=== PATIENT | female | born 1970 | race Caucasian/White ===

== ENCOUNTER 2017-05-30 05:35 | Observation (INO) | payer MEDICAID ==
[~2017-05-30] VITALS: Ht 167.6 cm; Wt 103.9 kg
[2017-05-30] VITALS (7 sets, daily range): BP systolic 108–117; BP diastolic 64–78
[~2017-05-30 05:35] MED LIST: ALBUTEROL2 PUFFS/17 IN; ALPRAZOLAM1 MG PO; ASPIRIN 81MG TA81 MG PO; ASPIRIN EC500 MG PO; AUGMENTIN 875 M1 TAB PO; BACLOFEN10 MG PO; CARVEDILOL3.125 MG PO; CELEXA10 MG PO; CHEWABLE ASPIRI81 MG PO; DULOXETINE 30MG30 MG PO; GABAPENTIN 600600 MG PO; HYDROCHLOROTHIA25 M1 PO; IMDUR 60MG. TAB60 MG PO; K-DUR 20MEQ TA20 MEQ PO; KLONOPIN1 M2 PO; LASIX 20MG. TAB20 MG PO; LIPITOR10 MG PO; LISINOPRIL 5MG T5 MG PO; MEDROL 4MG. DOSE4 MG PO; NAPROSYN 500MG500 MG PO; NITROSTAT0.4 MG SL; NOMEDS *; PAXIL20 MG PO; PLAVIX 75MG TAB75 MG PO; PLAVIX75 MG PO; PROZAC 20MG CAP20 MG PO; SEROQUEL50 MG PO; SOMA350 MG PO; SPIRONOLACTONE25 MG NG; SYNTHROID0.025 MG PO; TRAMADOL50 M1 PO; VALIUM 5MG TABLE5 MG PO; XANAX 0.5MG TA0.5 MG PO; [UNRECOGNIZED DRUG - CODE] PO
--- OUTSIDE RECORDS SUMMARY | 2017-05-30 05:52 | External Medical Summary Rpt ---
Author Author , CASANDRA GUAJARDO Address Unknown Phone [email or web address] Purpose Continuity of Care Document - 03-21-2017 through 2016 Results Labs Lab Lab Date Result Refere Interp Status Commen Order Detail nces retati t Range on Drugs identified in Urine by Screen method (03-21-2017 10:25) Ampheta NEGATIV <1000 complet mine 017 E ed [Presen 10:25 ce] in Urine by Screen method 11- NEGATIV <50 complet oxy 017 E ed delta-9 10:25 tetrahy drocann abinol [Presen ce] in Unspeci fied specime n
--- OUTSIDE RECORDS SUMMARY | 2017-05-30 05:52 | External Medical Summary Rpt ---
Author Author , CASANDRA GUAJARDO Address Unknown Phone [email or web address] Purpose Continuity of Care Document - 03-21-2017 [...]
--- OUTSIDE RECORDS SUMMARY | 2017-05-30 05:53 | External Medical Summary Rpt ---
Author Author , CASANDRA GUAJARDO Address Unknown Phone [email or web address] Immunization Name Date Rout CVX Reac Dose Comm Prov Is Faci e tion ent ider Refu lity Give sed n Infl 09-0 Intr 140 0.5 Hist KHAF No RITE uenz 8-20 amus mL oric SERA AID0 a, 16 cula al AYMA 3938 P-Fr r Info N ee rmat ion - Sour ce Unsp ecif ied
--- OUTSIDE RECORDS SUMMARY | 2017-05-30 05:53 | External Medical Summary Rpt ---
Author Author CASANDRA Rodriguez, EVANANTONIA [employer] Address Unknown Phone Unavailable Results Basic metabolic panel in Blood Observa Value Referen Units Interpr Notes Date tion ce etation Range Urea 7 - 18 mg/dL Normal No May 09 nitrogen informati 2016 7:10 [Mass/vol on in AM ume] in source Serum or data Plasma Calcium 8.5 - mg/dL Normal No May 09 [Mass/vol 10.1 informati 2016 7:10 ume] in on in AM Serum or source Plasma data Chloride 98 - 107 mmoL/L Normal No May 09 [Moles/vo informati 2016 7:10 lume] in on in AM Serum or source Plasma data Carbon 21.0 - mmoL/L Normal No May 09 dioxide, 32.0 informati 2016 7:10 total on in AM [Moles/vo source lume] in data Serum or Plasma Creatinin 0.55 - mg/dL Normal No May 09 e 1.02 informati 2016 7:10 [Mass/vol on in AM ume] in source Serum or data Plasma Estimated 59- ML/MIN No REFERENCE May 09 informati RANGE: 2017 7:10 glomerula on in >60 AM r source ML/MIN/1. filtratio data 73 SQUARE n rate METERSIf (GF this patient is -A merican, then multiply theresult by 1.210. Glucose 74 - 106 mg/dL High No May 09 [Mass/vol informati 2016 7:10 ume] in on in AM Serum or source Plasma data Potassium 3.5 - 5.1 mmoL/L Normal No May 09 informati 2016 7:10 [Moles/vo on in AM lume] in source Serum or data Plasma Sodium 136 - 145 mmoL/L Normal No May 09 [Moles/vo informati 2016 7:10 lume] in on in AM Serum or source Plasma data Lipid 1996 panel in Serum or Plasma Observa Value Referen Units Interpr Notes Date tion ce etation Range Cholester < 200 mg/dL No No May 09 ol informati informati 2016 7:10 [Moles/vo on in on in AM lume] in source source Unspecifi data data ed specimen Cholester 40 - 60 MG/DL Normal No May 09 ol in HDL informati 2016 7:10 on in AM [Mass/vol source ume] in data Serum or Plasma Cholester 0 - 130 mg/dL Normal No May 09 ol in LDL informati 2016 7:10 on in AM [Mass/vol source ume] in data Serum or Plasma by calculati on Triglycer 30 - 200 mg/dL High No May 09 katherine informati 2016 7:10 [Moles/vo on in AM lume] in source Serum or data Plasma Cholester 0 - 40 No High No May 09 ol in informati informati 2017 7:10 VLDL on in on in AM [Mass/vol source source ume] in data data Serum or Plasma Hepatic function 2000 panel in Serum or Plasma Observa Value Referen Units Interpr Notes Date tion ce etation Range Albumin 3.4 - 5.0 gm/dL Normal No May 09 [Mass/vol informati 2017 7:10 ume] in on in AM Serum or source Plasma data Alkaline 46 - 116 U/L High No May 09 phosphata informati 2017 7:10 se on in AM [Enzymati source c data activity/ volume] in Serum or Plasma Bilirubin 0.0 - 0.2 mg/dL Normal No May 09 .direct informati 2017 7:10 [Mass/vol on in AM ume] in source Serum or data Plasma Bilirubin 0 - 0.9 mg/dL Normal No May 09 .indirect informati 2017 7:10 on in AM [Mass/vol source ume] in data Serum or Plasma Bilirubin 0.2 - 1.0 mg/dL Normal No May 09 .total informati 2017 7:10 [Mass/vol on in AM ume] in source Serum or data Plasma Aspartate 15 - 37 U/L Low No May 09 informati 2017 7:10 aminotran on in AM sferase source [Enzymati data c activity/ volume] in Serum or Plasma Alanine 12 - 78 U/L Normal No May 09 aminotran informati 2017 7:10 sferase on in AM [Enzymati source c data activity/ volume] in Serum or Plasma Protein 6.4 - 8.2 gm/dL Normal No May 09 [Mass/vol informati 2017 7:10 ume] in on in AM Serum or source Plasma data Basic metabolic panel in Blood Observa Value Referen Units Interpr Notes Date tion ce etation Range Urea 7 - 18 mg/dL Normal No May 09 nitrogen informati 2016 7:10 [Mass/vol on in AM ume] in source Serum or data Plasma Calcium 8.5 - mg/dL Normal No May 09 [Mass/vol 10.1 informati 2016 7:10 ume] in on in AM Serum or source Plasma data Chloride 98 - 107 mmoL/L Normal No May 09 [Moles/vo informati 2016 7:10 lume] in on in AM Serum or source Plasma data Carbon 21.0 - mmoL/L Normal No May 09 dioxide, 32.0 informati 2016 7:10 total on in AM [Moles/vo source lume] in data Serum or Plasma Creatinin 0.55 - mg/dL Normal No May 09 e 1.02 informati 2016 7:10 [Mass/vol on in AM ume] in source Serum or data Plasma Estimated 59- ML/MIN No REFERENCE May 09 informati RANGE: 2017 7:10 glomerula on in >60 AM r source ML/MIN/1. filtratio data 73 SQUARE n rate METERSIf (GF this patient is -A merican, then multiply theresult by 1.210. Glucose 74 - 106 mg/dL High No May 09 [Mass/vol informati 2016 7:10 ume] in on in AM Serum or source Plasma data Potassium 3.5 - 5.1 mmoL/L Normal No May 09 informati 2016 7:10 [Moles/vo on in AM lume] in source Serum or data Plasma Sodium 136 - 145 mmoL/L Normal No May 09 [Moles/vo informati 2016 7:10 lume] in on in AM Serum or source Plasma data Lipid 1996 panel in Serum or Plasma Observa Value Referen Units Interpr Notes Date tion ce etation Range Cholester < 200 mg/dL No No May 09 ol informati informati 2016 7:10 [Moles/vo on in on in AM lume] in source source Unspecifi data data ed specimen Cholester 40 - 60 MG/DL Normal No May 09 ol in HDL informati 2016 7:10 on in AM [Mass/vol source ume] in data Serum or Plasma Cholester 0 - 130 mg/dL Normal No May 09 ol in LDL informati 2017 7:10 on in AM [Mass/vol source ume] in data Serum or Plasma by calculati on Triglycer 30 - 200 mg/dL High No May 09 katherine informati 2016 7:10 [Moles/vo on in AM lume] in source Serum or data Plasma Cholester 0 - 40 No High No May 09 ol in informati informati 2017 7:10 VLDL on in on in AM [Mass/vol source source ume] in data data Serum or Plasma Hepatic function 2000 panel in Serum or Plasma Observa Value Referen Units Interpr Notes Date tion ce etation Range Albumin 3.4 - 5.0 gm/dL Normal No May 09 [Mass/vol informati 2016 7:10 ume] in on in AM Serum or source Plasma data Alkaline 46 - 116 U/L High No May 09 phosphata informati 2016 7:10 se on in AM [Enzymati source c data activity/ volume] in Serum or Plasma Bilirubin 0.0 - 0.2 mg/dL Normal No May 09 .direct informati 2017 7:10 [Mass/vol on in AM ume] in source Serum or data Plasma Bilirubin 0 - 0.9 mg/dL Normal No May 09 .indirect informati 2017 7:10 on in AM [Mass/vol source ume] in data Serum or Plasma Bilirubin 0.2 - 1.0 mg/dL Normal No May 09 .total informati 2017 7:10 [Mass/vol on in AM ume] in source Serum or data Plasma Aspartate 15 - 37 U/L Low No May 09 informati 2017 7:10 aminotran on in AM sferase source [Enzymati data c activity/ volume] in Serum or Plasma Alanine 12 - 78 U/L Normal No May 09 aminotran informati 2016 7:10 sferase on in AM [Enzymati source c data activity/ volume] in Serum or Plasma Protein 6.4 - 8.2 gm/dL Normal No May 09 [Mass/vol informati 2016 7:10 ume] in on in AM Serum or source Plasma data Benzodiazepines Confirm, Urine Observa Value Referen Units Interpr Notes Date tion ce etation Range Benzodi Positiv Cutoff= ng/mL Abnorma No Mar 21 azepine e 100 l informa 2017 s tion in 10:25 [Presen source AM ce] in data Urine Alprazo Negativ Cutoff= No No No Mar 21 chamberlain e 100 informa informa informa 2017 [Presen tion in tion in tion in 10:25 ce] in source source source AM Urine data data data Clonaze Positiv . No Abnorma No Marvin 5 kassandra e informa l informa 2017 [Presen tion in tion in 10:25 ce] in source source AM Urine data data Clonazepa Cutoff=10 ng/mL No Clonazepa Marvin 5 m 0 informati m 2017 [Mass/vol on in detected; 10:25 AM ume] in source this Urine by data finding Confirm is method consisten t with use ofmedicat ions that include Klonopin, Rivotril, or generic formulati ons.Drugs listed are represent ative of common sources of the compoundd etected and are not intended to include all possible sources. Temazep Negativ Cutoff= No No No Marvin 5 am e 100 informa informa informa 2017 [Presen tion in tion in tion in 10:25 ce] in source source source AM Urine data data data by Confirm method Triazol Negativ Cutoff= No No No Marvin 5 am e 100 informa informa informa 2017 [Presen tion in tion in tion in 10:25 ce] in source source source AM Urine data data data Midazol Negativ Cutoff= No No No Marvin 5 am e 100 informa informa informa 2017 [Presen tion in tion in tion in 10:25 ce] in source source source AM Urine data data data by Confirm method Nordiaz Negativ Cutoff= No No No Mar 5 epam e 100 informa informa informa 2017 [Presen tion in tion in tion in 10:25 ce] in source source source AM Urine data data data Please Comment . No No Drug-te Mar 5 Note: informa informa st 2017 tion in tion in results 10:25 source source should AM data data be interpr eted in the context of clinica linform ation. Patient metabol ic variabl es, specifi c drug reformatory attendant ry, andspec imen charact eristic s can affect test outcome . Technic alconsu ltation is availab le if a test result is inconsi stent with anexpec sage outcome . (email- angie duval @[email or web address] or call [email or web address] [phone] )Drug brands, if listed herein, are tradema rks of their respect gina rs.Perf ormed at: [facility] [id number] [place], [place] [id number]Lab Directo r: Maurice Herman MD, Phone: [phone] Oxazepa Negativ Cutoff= No No No Mar 5 m e 100 informa informa informa 2017 [Presen tion in tion in tion in 10:25 ce] in source source source AM Urine data data data Fluraze Negativ Cutoff= No No No Mar 21 kassandra e 100 informa informa informa 2017 [Presen tion in tion in tion in 10:25 ce] in source source source AM Urine data data data Lorazep Negativ Cutoff= No No No Mar 21 am e 100 informa informa informa 2017 [Presen tion in tion in tion in 10:25 ce] in source source source AM Urine data data data Drugs identified in Urine by Screen method Observa Value Referen Units Interpr Notes Date tion ce etation Range Positive urine drug screen samples are stored for 7 days. Contact the Lab if confirmation of positives is needed. Ampheta NEGATIV <1000 ng/mL No No Mar 21 mine E informa informa 2016 [Presen tion in tion in 10:25 ce] in source source AM Urine data data by Screen method Barbitura <200 ng/mL No No Mar 5 kayy informati informati 2017 [Mass/vol on in on in 10:25 AM ume] in source source Urine by data data Screen method Benzodiaz 200 ng/mL ng/mL No No Mar 21 epines informati informati 2017 [Mass/vol on in on in 10:25 AM ume] in source source Serum or data data Plasma by Screen method Cocaine <300 ng/g No No Marvin 5 [Mass/vol informati informati 2017 ume] in on in on in 10:25 AM Unspecifi source source ed data data specimen Methadone <300 ng/mL No No Marvin 5 informati informati 2017 [Mass/vol on in on in 10:25 AM ume] in source source Unspecifi data data ed specimen Opiates <300 ng/mL No No Marvin 5 [Mass/vol informati informati 2017 ume] in on in on in 10:25 AM Unspecifi source source ed data data specimen Phencycli <25 ng/mL No No Marvin 5 dine informati informati 2017 [Mass/vol on in on in 10:25 AM ume] in source source Unspecifi data data ed specimen 11-Hydr NEGATIV <50 ng/mL No No Mar 5 oxy E informa informa 2017 delta-9 tion in tion in 10:25 source source AM tetrahy data data drocann abinol [Presen ce] in Unspeci fied specime n
--- OUTSIDE RECORDS SUMMARY | 2017-05-30 05:53 | External Medical Summary Rpt ---
Author Author CASANDRA Rodriguez, EVANANTONIA [employer] Address Unknown Phone Unavailable [...] metabol ic variabl es, specifi c drug medicinal chemist ry, andspec imen charact eristic s can affect test outcome . Technic alconsu ltation is availab le if a test result is inconsi stent with anexpec sage outcome . (email- angie duval @[employer] or call [email or web address] [phone] )Drug brands, if listed herein, are tradema rks of their respect gina rs.Perf ormed at: [facility] [id number] [place], [place] [id number]Lab Directo r: Maurice Herman MD, Phone: [phone] Oxazepa Negativ Cutoff= No No No Mar [...] Screen method Cocaine <300 ng/g No No Mavrin 5 [Mass/vol informati informati 2017 ume] in [...]
--- OUTSIDE RECORDS SUMMARY | 2017-05-30 05:53 | External Medical Summary Rpt ---
Demographics Preferred Language Guinean Marital Status Unknown Sabianism Affiliation Unknown Race Unknown Ethnic Group Unknown Author Author CASANDRA Address Unknown Phone [email or web address] Purpose Continuity of Care Document - through 2016
--- OUTSIDE RECORDS SUMMARY | 2017-05-30 05:53 | External Medical Summary Rpt ---
Author Author , CASANDRA GUAJARDO Address Unknown Phone [email or web address] Immunization Name Date Rout CVX Reac Dose Comm Prov Is Faci e tion ent ider Refu lity Give sed n Infl 09-0 Intr 140 0.5 Hist KHAF No RITE uenz 8-20 amus mL oric SERA AID0 a, 16 cula al AYMA 3938 P-Fr r Info N ee rmat ion - Sour ce Unsp ecif ied
--- OUTSIDE RECORDS SUMMARY | 2017-05-30 05:53 | External Medical Summary Rpt ---
Demographics Preferred Language Russian Marital Status Unknown Hindu Affiliation Unknown Race Unknown Ethnic Group Unknown Author Author CASANDRA Address Unknown Phone [email or web address] Purpose Continuity of Care Document - through 2016
[2017-05-30 06:17] LABS: HEMOGLOBIN 14.1 g/dL (12.2-16.2); LYMPH # 1.6 K/mm3 (0.7-4.5); LYMPH % 28.8 % (10-50.0)
--- NOTE | 2017-05-30 06:50 | Emergency Room Report ---
See Addendum History of Present Illness Time Seen by 0550 Presenting Problem in Triage Pt arrived:Ambulance Stretcher Presenting Problem:SHORTNESS OF BREATH Onset of symptoms date/time:05/28/1710/02/800 or onset unknown for: Treatment Prior to Arrival: AUCTIONEER TOBACCO Provided by: Sepsis Risk Assessment: Temp: 100.4 B/P: 120/79 MAP: 81 Pulse: 81 Resp: 16 Recent fever? Y Clinical Suspician of Infection? Y Mental Status: 1 - Regular (Normal Baseline) Sepsis Risk:Low Sepsis Risk Have you (or family members/close friends) recently traveled outside the [place]? N If Yes, where/when: Have you had exposure to infectious disease within the past month? N TB? Other? Specify: Source patient, RN notes reviewed, family, RN/MD Exam Limitations no limitations Comment This is a 47-year-old female patient presenting to the emergency room with subjective fever, productive cough and shows of breath for the past 2-3 days, gradually getting worse, worse with exertion. Patient denies any recent travel or exposure to sick contacts. ALLERGIES Coded Allergies: No Known Allergies (05/30/17) Home Medications Active Scripts TRAMADOL HCL (Tramadol) 50 MG PO TID #90 TAB Prov: 06/22/16 Albuterol (Albuterol Inhaler 17GM) 1 PUFF IN Q4HP #1 INH Prov: 08/28/12 POTASSIUM CHL (Potassium Chloride) 20 MEQ PO BID #3 TAB Prov: 02/22/14 Reported Medications Aspirin (Aspirin, Chewable) 81 MG PO DAILY Furosemide (Lasix 20MG) 20 MG PO BID Gabapentin (Gabapentin 600MG) 600 MG PO QID Quetiapine Fumarate (Seroquel 50MG) 50 MG PO QHS Levothyroxine Sodium (Synthroid 0.025MG) 0.025 MG PO DAILY History Medical History General CAD? Yes Angina: Yes [place]: No Hypertension? Yes Hyperlipidemia? Yes CHF? No DVT? No PE? No COPD? Yes Asthma? No Anemia? No GERD? No Gastric ulcers? No GI Bleed? No Hernia? No Thyroid Problems? No Hypothyroidism? No CVA? No Seizures? No Diabetes? Yes Insulin Dependent: No Insulin Pump: No Home FSBS? No Renal Insuffiency? No End Stage Renal Disease? No UTI? No Stones? Yes BPH? No GB Disease: Yes Nephritic Syndrome? No Asplenia? No Hepatitis? No Sickle Cell Disease? No Arthritis? Yes Migraines? Yes Cataracts? No Glaucoma? No MRSA? No HIV? No TB? No Anxiety? No Depression? No Cancer? No More? Yes Additional hx: TIA, FIBROMYALGIA Immunization Hx DT/Tetanus 5-10 Years Ago Flu 2015-16FSN Pneumonia Received In Past Surgical Hx Previous Surgery?Y APPENDECTOMY GALLBLADDER REMOVAL RT KNEE X3 PARTIAL HYSTERECTOMY HEART STENTS X2 HEART CATHX4 MOLES REMOVED HERNIA SURG DECKHAND CLAM DREDGE Hx LMP N/A Family History Family Hx Diabetes No CAD Yes Hypertension Yes Hyperlipidemia No Cancer Yes TB No Social History Smoking Hx Smoker: Current Every Day Smoker Tobacco: Yes Type Cigarettes Packs/day < 1 Pack Alcohol Alcohol: No Review of Systems All Other Systems Reviewed and Negative Constitutional see HPI, chills, diaphoresis, fever Respiratory cough, shortness of breath, wheezing Physical Exam Vital Signs Vital Signs Date Time Temp Pulse Resp B/P Pulse O2 O2 Flow FiO2 Ox Delivery Rate 05/30 0617 81 16 120/79 96 2 05/30 0615 92 05/30 0540 100.4 85 22 116/64 94 2 General Appearance normal appearance, WD/WN, mild distress Respiratory Status Yes: trachea midline, chest symmetrical, non tender chest. No: respiratory distress. Lung Sounds bilateral: wheezing. 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 No Comment 0815am-case discussed with Dr. Freeman, advised of patient's presentation, clinical condition, findings. Dr. Freeman agreeable with hospitalization. Results/Orders Laboratory Tests 05/30/1745: Lactic Acid 1.2 05/30/17 0545: Creatine Kinase 111, CK-MB (CK-2) Rel Index 0.5, CK and CKMB Interp < 0.5, Troponin I < 0.02 05/30/17 0545: Sodium 136, Potassium 4.1, Chloride 99, Carbon Dioxide 29, BUN 9, Creatinine 0.8 , Estimated Creat Clear 140, Estimated GFR (MDRD) 77, Glucose 119 H, Calcium 8.9, Total Bilirubin 0.4, AST 38 H, ALT 48, Alkaline Phosphatase 148 H, Total Protein 8.3 H, Albumin 3.9, Globulin 4.4 H, Albumin/Globulin Ratio 0.9 L, WBC 5.5, RBC 4.81, Hgb 14.1, Hct 44.2, MCV 91.9, RDW 14.2, Plt Count 195, MPV 8.3, Gran % 64.9, Gran # 3.6, Lymphocytes % 28.8, Monocytes % 5.2, Eosinophils % 0.5, Basophils % 0.7, Lymphocytes # 1.6, Monocytes # 0.3, Eosinophils # 0.0, Basophils # 0.0, PUBS MCHC 32.0, MCH 29.4 Current Medication Orders Sig/Alfreda Start time Last Medication Dose Route Stop Time Status Admin Gabapentin 600 MG ONCE ONE 05/30 830 AC PO 05/30 831 Azithromycin 0 .STK-MED ONE 05/30 0751 DC IV Azithromycin 500 MG ONCE ONE 05/30 0745 AC Sodium Chloride 250 ML IV 05/30 0844 Ceftriaxone Sodium 0 .STK-MED ONE 05/30 731 DC IV Methylprednisolone 0 .STK-MED ONE 05/30 731 DC Sodium Succinate .ROUTE Ceftriaxone Sodium 1 GM ONCE ONE 05/30 730 DC 05/30 Sodium Chloride 50 ML IV 05/30 0759 0734 Methylprednisolone 125 MG ONCE ONE 05/30 730 DC 05/30 Sodium Succinate IV 05/30 731 0733 Sodium Chloride 50 ML .STK-MED ONE 05/30 730 DC IV Albuterol/Ipratropium 0 .STK-MED ONE 05/30 0705 DC INH Albuterol/Ipratropium 3 ML ONCE ONE 05/30 07 DC 05/30 INH 05/30 0701 0706 Acetaminophen 500 MG ONCE ONE 05/30 0615 DCr 05/30 PO 05/30 0616 0611 Acetaminophen 0 .STK-MED ONE 05/30 06 DCr PO Sodium Chloride 10 ML PRN PRN 05/30 06 AC IV 05/31 0556 Sodium Chloride 10 ML ONCE ONE 05/30 0600 DC 05/30 IV 05/30 0601 0604 Orders Procedure Date/time Status Decision to admit 05/30 0816 Active ELECTROCARDIOGRAM REQUEST 05/30 0727 Active CARDIAC ENZYMES 05/30 0727 Complete URINALYSIS/COMPLETE 05/30 0716 Active RT Aerosol Treatment, Provide 05/30 0708 Active RT REQUEST DUONEB 05/30 0700 Active CULTURE, BLOOD 05/30 0558 Active ELECTROCARDIOGRAM REQUEST 05/30 0556 Active IV SALINE LOCK 05/30 0556 Active OXYGEN PER NURSE 05/30 0556 Active CULTURE, BLOOD 05/30 0556 Active LACTIC ACID 05/30 0556 Complete CBC WITH AUTO DIFF 05/30 05 Complete CHEM 12 PROFILE 05/30 05 Complete 12 LEAD EKG-BESSON (INITIAL) 05/30 UNK Active CM/EKG CM/medical language specialist Rhythm Normal Sinus Rhythm Rate 88 Ectopy No Comments no acute ischemic changes EKG rate, NSR, rhythm, no evid. of ischemic chgs, no ectopy, normal QRS, normal WA, no EKG for comparison, non-spec. ST/Twave chgs, ST elevation, ST depression, LBBB, RBBB, ectopy, abnormal Q waves XRAY/CT/US XRAY/CT/US XRAY chest XR interpretation by discussed w/radiologist Xray Results normal heart size, normal lung inflation han, RUL/RML infiltrates Departure Departure Time of Disposition 0815 Disposition Still a Patient Clinical Impression Primary Impression: Pneumonia Qualifiers: Pneumonia type: due to unspecified organism Laterality: right Lung location: middle lobe of lung Qualified Code: J18.1 - Lobar pneumonia, unspecified organism Secondary Impressions: COPD exacerbation Condition STABLE ED Critical Care Critical Care No at 0826
--- NOTE | 2017-05-30 07:34 | RADIOLOGY REPORT PS360 ---
CHEST-PORTABLE Ordering physician: Warner Mustafa MD Age: 47 years Female INDICATION: chest symptomsCOPD PROCEDURE: CHEST-PORTABLE FINDINGS: Previous chest film 03/20/2016. Question a small patchy area of infiltrate the periphery of the right upper lobe on today's study. Clinical correlation required. This may be exaggerated by technique but is noted. Otherwise note some mild hyperexpansion at the upper lung epps which may reflect COPD slight accentuation markings toward lung bases is similar to previous studies. Heart sukhwinder and mediastinal structures unchanged no pleural effusion. No pneumothorax chest wall unremarkable. Heart normal size. Normal pulmonary vascularity. . IMPRESSION ----- 1. question, & suggestion of a subtle patchy infiltrate the periphery of the right mid to upper lung field. This appearance may be exaggerated by technique but noted on today's
--- OUTSIDE RECORDS SUMMARY | 2017-05-30 08:26 | External Medical Summary Rpt ---
Author Author , CASANDRA GUAJARDO Address Unknown Phone [email or web address] Purpose Continuity of Care Document - 03-21-2017 through 2016 Problems Code Diagnosis DOS Provider Status J18.9 PNEUMONIA, UNSPECIFIED ORGANISM J44.1 CHRONIC OBSTRUCTIVE PULMONARY DISEASE W (ACUTE) EXACERBATIO N Results Labs Lab Lab Date Result Refere Interp Status Commen Order Detail nces retati t Range on Drugs identified in Urine by Screen method (03-21-2017 10:25) Ampheta NEGATIV <1000 complet mine 017 E ed [Presen 10:25 ce] in Urine by Screen method 11-Hydr NEGATIV <50 complet oxy 017 E ed delta-9 10:25 tetrahy drocann abinol [Presen ce] in Unspeci fied specime n
--- OUTSIDE RECORDS SUMMARY | 2017-05-30 08:26 | External Medical Summary Rpt ---
Author Author , CASANDRA GUAJARDO Address Unknown Phone [email or web address] Purpose Continuity of Care Document - 03-21-2017 [...]
--- OUTSIDE RECORDS SUMMARY | 2017-05-30 08:27 | External Medical Summary Rpt ---
Demographics Preferred Language Japanese Marital Status Unknown Latter Day Affiliation Unknown Race Unknown Ethnic Group Unknown Author Author CASANDRA Address Unknown Phone [email or web address] Purpose Continuity of Care Document - through 2016
--- OUTSIDE RECORDS SUMMARY | 2017-05-30 08:27 | External Medical Summary Rpt ---
Demographics Preferred Language Kuwaiti Marital Status Unknown [employer] Affiliation Unknown Race Unknown Ethnic Group Unknown Author Author CASANDRA Address Unknown Phone [email or web address] Purpose Continuity of Care Document - through 2016
--- OUTSIDE RECORDS SUMMARY | 2017-05-30 08:28 | External Medical Summary Rpt ---
Author Author , CASANDRA GUAJARDO Address Unknown Phone [email or web address] Immunization Name Date Rout CVX Reac Dose Comm Prov Is Faci e tion ent ider Refu lity Give sed n Infl 09-0 Intr 140 0.5 Hist KHAF No RITE uenz 8-20 amus mL oric SERA AID0 a, 16 cula al AYMA 3938 P-Fr r Info N ee rmat ion - Sour ce Unsp ecif ied
--- OUTSIDE RECORDS SUMMARY | 2017-05-30 08:28 | External Medical Summary Rpt ---
Author Author , CASANDRA GUAJARDO Address Unknown Phone [email or web address] Immunization Name Date Rout CVX Reac Dose Comm Prov Is Faci e tion ent ider Refu lity Give sed n Infl 09-0 Intr 140 0.5 Hist KHAF No RITE uenz 8-20 amus mL oric SERA AID0 a, 16 cula al AYMA 3938 P-Fr r Info N ee rmat ion - Sour ce Unsp ecif ied
--- OUTSIDE RECORDS SUMMARY | 2017-05-30 08:29 | External Medical Summary Rpt ---
Author Author CASANDRA Rodriguez, [employer] Address Unknown Phone Unavailable Results Lactate [Moles/volume] in Blood Observa Value Referen Units Interpr Notes Date tion ce etation Range Lactate 0.4 - 2.0 mmol/L Normal No May 30 [Moles/vo informati 2017 5:45 lume] in on in AM Blood source data Comprehensive metabolic 2000 panel in Serum or Plasma Observa Value Referen Units Interpr Notes Date tion ce etation Range Albumin/G 1.1 - 1.8 No Low No May 30 lobulin informati informati 2016 5:45 [Mass on in on in AM ratio] in source source Serum or data data Plasma Albumin 3.4 - 5.0 gm/dL Normal No May 30 [Mass/vol informati 2016 5:45 ume] in on in AM Serum or source Plasma data Alkaline 46 - 116 U/L High No May 30 phosphata informati 2016 5:45 se on in AM [Enzymati source c data activity/ volume] in Serum or Plasma Bilirubin 0.2 - 1.0 mg/dL Normal No May 30 .total informati 2016 5:45 [Mass/vol on in AM ume] in source Serum or data Plasma Urea 7 - 18 mg/dL Normal No May 30 nitrogen informati 2016 5:45 [Mass/vol on in AM ume] in source Serum or data Plasma Calcium 8.5 - mg/dL Normal No May 30 [Mass/vol 10.1 informati 2017 5:45 ume] in on in AM Serum or source Plasma data Chloride 98 - 107 mmoL/L Normal No May 30 [Moles/vo informati 2016 5:45 lume] in on in AM Serum or source Plasma data Carbon 21.0 - mmoL/L Normal No May 30 dioxide, 32.0 informati 2017 5:45 total on in AM [Moles/vo source lume] in data Serum or Plasma Creatinin 0.55 - mg/dL Normal No May 30 e 1.02 informati 2017 5:45 [Mass/vol on in AM ume] in source Serum or data Plasma Creatinin 50 - 200 ML/MIN Normal No May 14 e renal 2016 5:45 clearance on in AM source predicted data by Cockcroft -Gault formula Estimated 59- ML/MIN No REFERENCE May 30 informati RANGE: 2016 5:45 glomerula on in >60 AM r source ML/MIN/1. filtratio data 73 SQUARE n rate METERSIf (GF this patient is -A merican, then multiply theresult by 1.210. Globulin 1.3 - 3.2 gm/dL High No May 30 [Mass/vol informati 2016 5:45 ume] in on in AM Serum source data Glucose 74 - 106 mg/dL High No May 30 [Mass/vol informati 2016 5:45 ume] in on in AM Serum or source Plasma data Potassium 3.5 - 5.1 mmoL/L Normal No May 302016 5:45 [Moles/vo on in AM lume] in source Serum or data Plasma Sodium 136 - 145 mmoL/L Normal No May 30 [Moles/vo 2016 5:45 lume] in on in AM Serum or source Plasma data Aspartate 15 - 37 U/L High No May 302016 5:45 aminotran on in AM sferase source [Enzymati data c activity/ volume] in Serum or Plasma Alanine 12 - 78 U/L Normal No May 30 aminotran 2016 5:45 sferase on in AM [Enzymati source c data activity/ volume] in Serum or Plasma Protein 6.4 - 8.2 gm/dL High No May 30 [Mass/vol informati 2016 5:45 ume] in on in AM Serum or source Plasma data CBC W Auto Differential panel in Blood Observa Value Referen Units Interpr Notes Date tion ce etation Range Basophils 0 - 0.2 K/MM3 Normal No May 302016 5:45 [#/volume on in AM ] in source Blood by data Automated count Basophils 0.1 - 2.0 % Normal No May 30 / inform2016 5:45 leukocyte on in AM s in source Blood by data Automated count Eosinophi 0.0 - 0.4 K/mm3 Normal No May 30 ls ati 2016 5:45 [#/volume on in AM ] in source Blood by data Automated count Eosinophi 0.1 - % Normal No May 30 ls/100 12.0 informati 2016 5:45 leukocyte on in AM s in source Blood by data Automated count Granulocy 1.8 - 7.8 K/mm3 Normal No May 30 kayy informati 2016 5:45 [#/volume on in AM ] in source Blood by data Automated count Granulocy 37.0 - % Normal No May 30 kayy/100 80.0 informati 2016 5:45 leukocyte on in AM s in source Blood by data Automated count Hematocri 37.0 - % Normal No May 30 t [Volume 47.0 informati 2016 5:45 on in AM Fraction] source of Blood data Hemoglobi 12.2 - g/dL Normal No May 30 n 16.2 informati 2016 5:45 [Mass/vol on in AM ume] in source Blood data Lymphocyt 0.7 - 4.5 K/mm3 Normal No May 30 es informati 2016 5:45 [#/volume on in AM ] in source Unspecifi data ed specimen by Automated count Lymphocyt 10 - 50.0 % Normal No May 30 es informati 2016 5:45 [#/volume on in AM ] in source Unspecifi data ed specimen by Automated count Erythrocy 27 - 31.2 pg Normal No May 30 te mean informati 2016 5:45 corpuscul on in AM ar source hemoglobi data n [Entitic mass] Erythrocy 31.8 - g/dl Normal No May 30 te mean 35.4 informati 2016 5:45 corpuscul on in AM ar source hemoglobi data n concentra tion [Mass/vol ume] by Automated count Erythrocy 82.2 - fl Normal No May 30 te mean 97.8 informati 2016 5:45 corpuscul on in AM ar volume source [Entitic data volume] by Automated count Monocytes 0.1 - 1.0 K/mm3 Normal No May 30 informati 2016 5:45 [#/volume on in AM ] in source Blood by data Automated count Monocytes 1.7 - 9.3 % Normal No May 30 /100 informati 2016 5:45 leukocyte on in AM s in source Blood by data Automated count Platelet 7.4 - fl Normal No May 30 mean 10.4 informati 2016 5:45 volume on in AM [Entitic source volume] data in Blood by Automated count Platelets 142 - 424 K/mm3 No No May 30 informati informati 2016 5:45 [#/volume on in on in AM ] in source source Blood data data Erythrocy 4.2 - 5.4 M/mm3 Normal No May 30 kayy informati 2016 5:45 [#/volume on in AM ] in source Amniotic data fluid Erythrocy 11.5 - % Normal No May 30 te 17.5 informati 2017 5:45 distribut on in AM ion width source [Entitic data volume] by Automated count Leukocyte 4.8 - K/MM3 Normal No May 30 s 10.8 informati 2016 5:45 [#/volume on in AM ] in source Blood data Basic metabolic panel in Blood Observa [...] No May 09 ol in informati informati 2016 7:10 VLDL on in on in AM [...] mg/dL Normal No May 09 .direct informati 2016 7:10 [Mass/vol on in AM [...] 37 U/L Low No May 09 informati 2016 7:10 aminotran on in AM sferase source [...] No May 09 ol in informati informati 2016 7:10 VLDL on in on in AM [...] mg/dL Normal No May 09 .direct informati 2016 7:10 [Mass/vol on in AM [...] data Clonaze Positiv . No Abnorma No Mar 21 kassandra e informa l informa 2017 [Presen [...] sources. Temazep Negativ Cutoff= No No No Mar 5 am e 100 informa informa informa 2017 [Presen tion in tion in tion in 10:25 ce] in source source source AM Urine data data data by Confirm method Triazol Negativ Cutoff= No No No Mar 5 am e 100 informa informa informa 2017 [Presen tion in tion in tion in 10:25 ce] in source source source AM Urine data data data Midazol Negativ Cutoff= No No No Mar 5 am e 100 informa informa informa 2017 [Presen tion in tion in tion in 10:25 ce] in source source source AM Urine data data data by Confirm method Nordiaz Negativ Cutoff= No No No Mar 21 epam e 100 informa informa informa 2017 [Presen tion in tion in tion in 10:25 ce] in source source source AM Urine data data data Please Comment . No No Drug-te Mar 21 Note: informa informa st 2017 tion in tion in results 10:25 source source should AM data data be interpr eted in the context of clinica linform ation. Patient metabol ic variabl es, specifi c drug chemistry department chair ry, andspec imen charact eristic s can affect test outcome . Technic alconsu ltation is availab le if a test result is inconsi stent with anexpec sage outcome . (email- angie duval @[employer] or call [employer] [phone] )Drug brands, if listed herein, are tradema rks of their respect gina rs.Perf ormed at: [facility] [id number] [facility], [place], [place] [id number]Lab Directo r: Maurice Herman MD, Phone: [phone] Oxazepa Negativ Cutoff= No No No Mar 21 m e 100 informa informa informa 2017 [...] method Barbitura <200 ng/mL No No Mar 21 kayy informati informati 2017 [Mass/vol on in on in 10:25 AM ume] in source source Urine by data data Screen method Benzodiaz 200 ng/mL ng/mL No No Mar 21 epines informati informati 2017 [Mass/vol on in on in 10:25 AM ume] in source source Serum or data data Plasma by Screen method Cocaine <300 ng/g No No Mar 21 [Mass/vol informati informati 2016 ume] in on in on in 10:25 AM Unspecifi source source ed data data specimen Methadone <300 ng/mL No No Mar 21 informati informati 2017 [Mass/vol on in on in 10:25 AM ume] in source source Unspecifi data data ed specimen Opiates <300 ng/mL No No Marvin 5 [Mass/vol informati informati 2016 ume] in on in on in 10:25 AM Unspecifi source source ed data data specimen Phencycli <25 ng/mL No No Marvin 5 dine informati informati 2017 [Mass/vol on in on in 10:25 AM ume] in source source Unspecifi data data ed specimen 11-Hydr NEGATIV <50 ng/mL No No Marvin 5 oxy E informa informa 2017 delta-9 tion in tion in 10:25 source source AM tetrahy data data drocann abinol [Presen ce] in Unspeci fied specime n
--- OUTSIDE RECORDS SUMMARY | 2017-05-30 08:29 | External Medical Summary Rpt ---
[...] ic variabl es, specifi c drug chemistry professor ry, andspec imen charact eristic s can affect test outcome . Technic alconsu ltation is availab le if a test result is inconsi stent with anexpec sage outcome . (email- angie duval [email or web address] or call [employer] [phone] )Drug brands, if listed herein, are tradema rks of their respect gina rs.Perf ormed at: [facility] [id number] [facility], [place], [place] [id number]Lab Directo r: Maurice Herman MD, Phone: [phone] Oxazepa Negativ Cutoff= No No No Mar [...]
--- NOTE | 2017-05-30 08:40 | PHARMACY CLINIC NOTE ---
Patient Demographics Patient Demographics Admission date: 05/30/17 Date: 05/30/17 Time: 0839 Allergies Coded Allergies: No Known Allergies (05/30/17) HEIGHT- FT: 5 IN: 6.00 K.420 VTE General Information Labs: Laboratory Tests 05/30 0545 Hematology Hgb (12.2 - 16.2 g/dL) 14.1 Hct (37.0 - 47.0 %) 44.2 Plt Count (142 - 424 K/mm3) 195 Disclaimer The following section includes nursing documentation that has been pulled in for pharmacy review. VTE prophylaxis NQF [id number] VTE prophylaxis ordered? Yes Type of prophylaxis/treatment: RAUL at 0839
--- NOTE | 2017-05-30 09:06 | HISTORY AND PHYSICAL REPORT ---
Demographics: Admit date: 05/30/17 Chief complaint: sob PRIMARY DIAGNOSIS: cough Allergies: Coded Allergies: No Known Allergies (05/30/17) History of present illness: History of present illness: pt with progressive cough with dec po intake over the last few days - and fever at home and was seen in the ed with low pulse oxy and abn cxr and was admitted for ivf and abx -pt was given treatment in ed but still remained symptomatic Past medical history: Family HX Family Hx Insignificant No Diabetes No CAD Yes Hypertension Yes Hyperlipidemia No Cancer Yes TB No Immunization HX DT/Tetanus 5-10 Years Ago Flu 2014-16FSN Pneumonia Received In Past General CAD? Yes Angina: Yes [place]: No Hypertension? Yes Hyperlipidemia? Yes CHF? No DVT? No PE? No COPD? Yes Asthma? No Anemia? No GERD? No Gastric ulcers? No GI Bleed? No Hernia? No Thyroid Problems? No Hypothyroidism? No CVA? No Seizures? No Diabetes? Yes Insulin Dependent: No Insulin Pump: No Home FSBS? No Renal Insuffiency? No UTI? No Stones? Yes BPH? No GB Disease: Yes Nephritic Syndrome? No Asplenia? No Hepatitis? No Sickle Cell Disease? No Arthritis? Yes Migraines? Yes Cataracts? No Glaucoma? No MRSA? No HIV? No TB? No Anxiety? No Depression? No Cancer? No More? Yes Additional hx: TIA, FIBROMYALGIA Past Surgical HX Previous Surgery?Y APPENDECTOMY GALLBLADDER REMOVAL RT KNEE X3 PARTIAL HYSTERECTOMY HEART STENTS X2 HEART CATHX4 MOLES REMOVED HERNIA SURG Current home meds: Active Scripts TRAMADOL HCL (Tramadol) 50 MG PO TID #90 TAB Prov: 06/22/16 Albuterol (Albuterol Inhaler 17GM) 1 PUFF IN Q4HP #1 INH Prov: 08/28/12 POTASSIUM CHL (Potassium Chloride) 20 MEQ PO BID #3 TAB Prov: 02/22/14 Reported Medications Aspirin (Aspirin, Chewable) 81 MG PO DAILY Furosemide (Lasix 20MG) 20 MG PO BID Gabapentin (Gabapentin 600MG) 600 MG PO QID Quetiapine Fumarate (Seroquel 50MG) 50 MG PO QHS Levothyroxine Sodium (Synthroid 0.025MG) 0.025 MG PO DAILY Social Hx: Smoking HX Tobacco Yes Type Cigarettes Packs/day < 1 PACK Alcohol Alcohol: No Hx of Drug Use Drug Use? No Patien't marital status is Patient's support system is good Review of systems: Constitutional see HPI, fever. Eyes No: drainage. Ears, Nose, Mouth, Throat No ear discharge, No epistaxis, No throat pain Respiratory cough, shortness of breath, wheezing. Cardiovascular No chest pain, No palpitations Gastrointestinal/Abdominal see HPI, nausea, poor appetite, poor fluid intake, vomiting Genitourinary No: frequency. Musculoskeletal No: back pain, joint pain, joint swelling, neck pain. Skin No: rash. Neurological No: headache, seizure disorder. Psychiatric No: no symptoms reported. Exam: Lab data for last 24 hours: Laboratory Tests 05/30/17544: Lactic Acid 1.2 05/30/17544: Creatine Kinase 111, CK-MB (CK-2) Rel Index 0.5, CK and CKMB Interp < 0.5, Troponin I < 0.02 05/30/17544: Sodium 136, Potassium 4.1, Chloride 99, Carbon Dioxide 29, BUN 9, Creatinine 0.8 , Estimated Creat Clear 140, Estimated GFR (MDRD) 77, Glucose 119 H, Calcium 8.9, Total Bilirubin 0.4, AST 38 H, ALT 48, Alkaline Phosphatase 148 H, Total Protein 8.3 H, Albumin 3.9, Globulin 4.4 H, Albumin/Globulin Ratio 0.9 L, WBC 5.5, RBC 4.81, Hgb 14.1, Hct 44.2, MCV 91.9, RDW 14.2, Plt Count 195, MPV 8.3, Gran % 64.9, Gran # 3.6, Lymphocytes % 28.8, Monocytes % 5.2, Eosinophils % 0.5, Basophils % 0.7, Lymphocytes # 1.6, Monocytes # 0.3, Eosinophils # 0.0, Basophils # 0.0, PUBS MCHC 32.0, MCH 29.4 Microbiology 05/30 545 BLOOD: Anaerobic Blood Culture - RECD 05/30 545 BLOOD: Aerobic Blood Culture - RECD 05/30 545 BLOOD: Anaerobic Blood Culture - RECD 05/30 545 BLOOD: Aerobic Blood Culture - RECD Admission vital signs: 1ST Vital Signs Result Date Time Pulse Ox 94 05/30 540 B/P 116/64 08/14 0540 O2 Flow Rate 2 05/30 0540 Temp 100.4 05/30 0540 Pulse 85 05/30 0540 Resp 22 05/30 0540 Exam General appearance: alert Eyes: PERRLA ENT: dry mucous membranes Neck: no JVD Cardiovascular: regular rate & rhythm, murmur Respiratory: diminished breath sounds, rhonchi, wheezing ABD: soft Genitourinary: no hematuria Extremities: moves all Musculoskeletal: equal muscle strength Skin: dry Neuro: alert, 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 CAP (community acquired pneumonia) Plan: will give abx and steroids with resp rx at 0906
[2017-05-30] MEDS ORDERED: CARVEDILOL 1212.5 MG PO (11:33)
[2017-05-30] MEDS ORDERED: CLONAZEPAM 1MG T1 MG PO (11:34)
[2017-05-30] MEDS ORDERED: BACLOFEN10 MG PO (11:35)
[2017-05-30] MEDS ORDERED: LISINOPRIL5 MG PO (11:36)
[2017-05-30] MEDS ORDERED: AMLO5TAB PO (11:37)
[2017-05-30] MEDS ORDERED: ISOSORBIDE MON120 MG PO (11:38)
[2017-05-30] MEDS ORDERED: FLUOXETINE HCL40 MG PO (11:38)
[2017-05-30] MEDS ORDERED: ALDACTONE 25MG25 MG NG (11:38)
[2017-05-30] MEDS ORDERED: ATORVASTATIN CA40 MG PO (11:39)
[2017-05-30] MEDS ORDERED: CLOPIDOGREL75 M2 PO (11:40)
[2017-05-30] MEDS ORDERED: NITROGLYCERIN0.4 M1 SL (11:41)
[2017-05-31 00:46] VITALS: BP 108/68
[2017-05-31 03:49] VITALS: BP 105/73
[2017-05-31 07:35] VITALS: BP 120/75
--- NOTE | 2017-05-31 08:59 | DISCHARGE SUMMARY STANDARD ---
Demographics Admit date: 05/30/17 Discharge date: 05/31/17 History of present illness History of present illness pt with progressive cough with dec po intake over the last few days - and fever at home and was seen in the ed with low pulse oxy and abn cxr and was admitted for ivf and abx -pt was given treatment in ed but still remained symptomatic Hospital Course Hospital Course: copd- iv steroids, iv antibotics, o2 per nc, breathing tx for soa. today pt states she feels much better and wants to go home. pt states she has neb machine at home and will use it, pt states she will stop smoking. will give sample of breo and recehck in office in one week. Discharge diagnoses Problem List 1. CAP (community acquired pneumonia) Medications Medications: Discharge meds are as noted. Follow up Follow up in office in: 7 DAYS with: Erin Luke Comment: rounded with edward at 0840
--- NOTE | 2017-05-31 09:02 | ACUTE CARE PROGRESS NOTE (QUA) ---
Progress Notes Subjective Date 05/31/17 Time 0900 Patient/family reports: feeling better, no complaints Nursing reports: alert, no complaints Objective Findings Microbiology 05/31 720 SPUTUM: Sputum Culture - RES 05/31 720 SPUTUM: Gram Stain - RES Vital Signs Date Time Temp Pulse Resp B/P Pulse O2 O2 Flow FiO2 Ox Delivery Rate 05/31 0735 98.0 82 20 120/75 92 OXYGEN 05/31 0627 2 05/31 0555 2 05/31 0537 2 05/31 0537 92 ROOM AIR 05/31 0453 2 05/31 0349 2 05/31 0349 97.7 69 18 105/73 90 OXYGEN 2 05/31 0303 2 05/31 0200 2 05/31 0105 2 05/31 0046 2 05/31 0046 98.1 76 16 108/68 92 OXYGEN 2 05/30 2221 2 05/30 2112 2 05/30 2005 2 05/30 2005 98.0 83 18 116/76 91 2 05/30 1946 2 05/30 1946 98.0 83 18 116/76 91 OXYGEN 2 05/30 1846 2 05/30 1839 88 ROOM AIR 2 05/30 1835 2 05/30 1835 88 ROOM AIR 05/30 1800 2 05/30 1721 2 05/30 1600 2 05/30 1600 98.0 84 18 117/78 92 OXYGEN 2 05/30 1501 2 05/30 1400 2 05/30 1305 2 05/30 1159 2 05/30 1158 98.3 77 18 111/69 100 OXYGEN 2 05/30 1114 77 05/30 1114 98.3 77 16 111/69 05/30 1114 100 OXYGEN 05/30 1112 2 05/30 1008 99.0 77 20 108/70 94 OXYGEN 2 05/30 1001 2 05/30 1001 89 ROOM AIR 05/30 0942 100.4 76 20 104/67 96 2 05/30 0911 76 20 104/67 96 2 Current Medications Amlodipine Besylate 5 MG DAILY PO Aspirin 81 MG DAILY PO Atorvastatin Calcium 40 MG DAILY PO Azithromycin 500 MG DAILY IV Sodium Chloride 250 ML Ceftriaxone Sodium 1 GM DAILY IV Sodium Chloride 50 ML Clopidogrel Bisulfate 75 MG DAILY PO Fluoxetine HCl 40 MG DAILY PO Isosorbide Mononitrate 120 MG DAILY PO Levothyroxine Sodium 0.025 MG DAILY PO Lisinopril 5 MG DAILY PO Spironolactone 25 MG DAILY PO Carvedilol 12.5 MG BID PO Clonazepam 1 MG TID PO Quetiapine Fumarate 50 MG QHS PO Clonazepam 0 .STK-MED ONE PO (DC) Gabapentin 600 MG QID PO Sodium Chloride 10 ML PRN PRN IV Albuterol/Ipratropium 3 ML Q4H6 INH Albuterol/Ipratropium 0 .STK-MED ONE INH (DC) Methylprednisolone Sodium Succinate 60 MG Q12 IV Nicotine 21 MG DAILYP PRN TD Sodium Chloride 10 ML PRN PRN IV (DC) Last VS-Temp:98.0 B/P:120/75 Pulse:82 Resp:20 SaO2:92 OXYGEN Last weight lbs:229 oz:2 K.931 Method:Bed Scales Exam General appearance: normal appearance, alert, awake, no acute distress Eyes: normal exam ENT: normal exam Neck: normal inspection, no carotid bruit, full range of motion Cardiovascular: normal exam, regular rate & rhythm Respiratory: normal exam, clear to auscultation, good air movement, no respiratory distress ABD: normal exam, normal bowel sounds, soft Genitourinary: normal voiding & quantity Extremities: normal exam, normal capillary refill, femoral pulses Musculoskeletal: normal exam Skin: normal exam, intact, warm Neuro: normal exam, alert, intact, oriented Reviewed: allergies, medications, vital signs, lab results, radiology report, consult note Assessment/Plan Problem List 1. CAP (community acquired pneumonia) Patient condition Stable Plan: initiate discharge plan This inpt stay is expected to cross 2 MNs from start of care Yes Comments: rounded with edward Antibiotic Stewardship (2) Current Culture Results Microbiology 05/31 720 SPUTUM: Sputum Culture - RES 05/31 720 SPUTUM: Gram Stain - RES 05/30 545 BLOOD: Anaerobic Blood Culture - RECD 05/30 545 BLOOD: Aerobic Blood Culture - RECD at 0902
[2017-05-31] MEDS ORDERED: OXYGEN2 IH (09:07)
[2017-05-31] MEDS ORDERED: ALBUTEROL2.5 MG/NEB INH (09:08)
[2017-05-31] MEDS ORDERED: PREDNISONE 20MG20 MG PO (09:08)
[2017-05-31] MEDS ORDERED: ZITHROMAX Z PA250 MG PO (09:08)
[2017-05-31 10:21] VITALS: BP 120/75
[2017-05-31 11:14] VITALS: BP 120/75
== END 2017-05-31 11:30 | disposition home or self-care (01) ==
LOC: ER 05:35 → 2ND 08:22 → ER 08:22 → 2ND 08:29
PROVIDERS: Emergency Medicine
DX: J18.9 Pneumonia, unspecified organism (principal); J44.9 Chronic obstructive pulmonary disease, unspecified; I10 Essential (primary) hypertension; E11.9 Type 2 diabetes mellitus without complications; Z95.5 Presence of coronary angioplasty implant and graft
CPT/HCPCS: G0378; J0456

== ENCOUNTER → 2017-09-13 | Outpatient (CLI) | payer MEDICAID ==
[~2017-09-13] MED LIST changes: +ALBUTEROL2.5 MG/NEB INH; +ALDACTONE 25MG25 MG NG; +AMLO5TAB PO; +ATORVASTATIN CA40 MG PO; +CARVEDILOL 1212.5 MG PO; +CLONAZEPAM 1MG T1 MG PO; +CLOPIDOGREL75 M2 PO; +FLUOXETINE HCL40 MG PO; +ISOSORBIDE MON120 MG PO; +LISINOPRIL5 MG PO; +NITROGLYCERIN0.4 M1 SL; +OXYGEN2 IH; +PREDNISONE 20MG20 MG PO; +ZITHROMAX Z PA250 MG PO
[2017-09-13 17:13] LABS: AMPHETAMINES/METAMPHETAMINES NEGATIVE ng/mL (<1000)
[2017-09-13 17:17] LABS: BUN 10 mg/dL (7-18)
[2017-09-13 17:30] LABS: GFR (ESTIMATED) 77 ML/MIN (59-)
== END ==
LOC: LAB 15:58
PROVIDERS: Emergency Medicine
DX: E03.9 Hypothyroidism, unspecified (principal); I25.10 Atherosclerotic heart disease of native coronary artery without angina pectoris; M79.7 Fibromyalgia; Z79.899 Other long term (current) drug therapy